=== PATIENT | female | born 1960 | race Caucasian/White ===

== ENCOUNTER → 2018-02-06 | Outpatient (CLI) | payer BC ==
--- NOTE | 2018-02-06 14:37 | US ---
EXAMINATION TYPE: US thyroid st tissue head/neck DATE OF EXAM: 02/06/2018 COMPARISON: NONE CLINICAL HISTORY: R22 Neck mass/swelling. GLAND SIZE: Right Lobe: 4.7 x 1.5 x 1.5 cm Overall Parenchyma: homogenous Left Lobe: 5.0 x 1.4 x 1.6 cm Overall Parenchyma: heterogeneous Isthmus Thickness: 0.4 cm NODULES RIGHT: # of nodules measured on right: 1 1. 1.1 X 0.6 x 1.2 cm isoechoic solid nodule at the lower pole with well-defined margins. This nod ule is wider than tall and shows intranodular vascularity. LEFT: # of nodules measured on left: 1 1. 1.6 X 1.5 x 2.1 cm isoechoic mixed nodule at the lower pole with poorly defined margins. This n odule is wider than tall and shows intranodular vascularity. ISTHMUS: # of nodules measured in the isthmus: 0 Bilateral neck scanned, no evidence of lymphadenopathy. Thyroid gland is normal in size. Left thyroid lobe is more heterogeneous in appearance and right thyr oid lobe. There is larger predominantly solid mixed nodule with solid components slightly hyperechoic and lobulation or extrathyroidal extension that is wider greater than tall with poorly defined david ns. IMPRESSION: Heterogeneous left thyroid with suspicious 2.1 cm predominantly solid poorly defined nodule. Consider further investigation with sampling.
== END | disposition home or self-care (01) ==
LOC: RADUSWWP 13:27
PROVIDERS: ATTEND Internal Medicine
DX: R93.8 Abnormal findings on diagnostic imaging of other specified body structures (principal)
CPT/HCPCS: 76536

== ENCOUNTER 2018-02-23 12:16 | Day surgery (SDC) | payer BC ==
[2018-02-23 12:48] VITALS: RESP 16; TEMP 97.8
[2018-02-23 13:41] VITALS: BP 124/81; PULSE 78
--- NOTE | 2018-02-23 13:59 | US ---
ULTRASOUND GUIDED FNA THYROID BIOPSY: CLINICAL HISTORY: Right and left thyroid nodule FINDINGS: The procedure was explained to the patient. The risks, complications, benefits and alternatives were discussed and any questions were answered. Informed consent was obtained. Patient was placed supin e on the ultrasound table and prepped and draped in the usual sterile fashion. Utilizing a 25 gauge needle, five passes were made into the questioned right and left thyroid nodule. Patient was stable throughout the procedure. Pathology is pending. All elements of maximal barrier technique were utilized. IMPRESSION: 1. Successful ultrasound guided FNA thyroid biopsy.
== END 2018-02-23 13:35 | disposition home or self-care (01) ==
LOC: RADPROMAIN 12:16
PROVIDERS: ATTEND Otolaryngology
DX: E04.1 Nontoxic single thyroid nodule (principal)
CPT/HCPCS: 10022; 36415; 76942; 88173; 88305

== ENCOUNTER → 2018-08-30 | Outpatient (CLI) | payer BC ==
--- NOTE | 2018-08-30 15:22 | US ---
EXAMINATION TYPE: US thyroid st tissue head/neck DATE OF EXAM: 08/30/2018 COMPARISON: US February 06, 2018 CLINICAL HISTORY: E04.1 THYROID NODULE. 6 month follow up thyroid nodules, history of thyroid FNA GLAND SIZE: Right Lobe: 4.6 x 1.7 x 1.7 cm Overall Parenchyma: heterogenous Left Lobe: 5.1 x 1.6 x 1.4 cm Overall Parenchyma: heterogeneous Isthmus Thickness: 0.7 cm NODULES RIGHT: # of nodules measured on right: 1 1. 1.3 X 0.7 x 1.2 cm isoechoic mixed nodule at the lower pole with well-defined margins. This nodu le is wider than tall and shows intranodular vascularity. Prior size: 1.1 x 0.6 x 1.2 cm LEFT: # of nodules measured on left: 2 1. 1.5 X 1.1 x 1.5 cm hyperechoic mixed nodule at the lower pole with well-defined margins. This no dule is wider than tall and shows intranodular vascularity. Prior size: 1.6 x 1.5 x 2.1 cm 2. 1.4 X 1.0 x 1.3 cm hypoechoic mixed nodule at the mid pole with well-defined margins. This nodule is wider than tall and shows intranodular vascularity. Prior size: no previous ISTHMUS: # of nodules measured in the isthmus: 0 Bilateral neck scanned, no evidence of lymphadenopathy. Redemonstration of heterogeneous multinodular normal size thyroid which was recently sampled. No new or changing nodules identified. IMPRESSION: Overall stable findings.
== END ==
LOC: RADUSWWP 14:18
PROVIDERS: ATTEND Otolaryngology
DX: E04.1 Nontoxic single thyroid nodule (principal)
CPT/HCPCS: 76536

== ENCOUNTER → 2019-03-20 | Outpatient (CLI) | payer BC ==
--- NOTE | 2019-03-20 16:03 | US ---
EXAMINATION TYPE: US thyroid st tissue head/neck DATE OF EXAM: 03/20/2019 COMPARISON: NONE CLINICAL HISTORY: E04.1 thyroid nodule. follow up exam GLAND SIZE: Right Lobe: 4.4 x 1.4 x 2.1 cm Overall Parenchyma: heterogenous Left Lobe: 4.0 x 1.2 x 1.7 cm Overall Parenchyma: heterogeneous Isthmus Thickness: 0.7 cm NODULES RIGHT: # of nodules measured on right: 1 1. 1.0 X 0.7 x 0.7 cm hypoechoic nodule at the mid pole with irregular margins; present with microc alcifications. This nodule is taller than wide and shows no intranodular vascularity. Prior size: 1.3 x 1.2 x 0.7 cm LEFT: # of nodules measured on left: 2 1. 1.3 X 1.8 x 1.4 cm mixed nodule at the lower pole with poorly defined margins. This nodule is w ider than tall and shows intranodular vascularity. Prior size: 1.5 x 1.5 x 1.1 cm 2. 1.0 X 0.7 x 0.8 cm mixed nodule at the upper pole with irregular margins. This nodule is taller than wide and shows no intranodular vascularity. Prior size: 1.4 x 1.0 x 1.3 cm ISTHMUS: # of nodules measured in the isthmus: 1 1. 1.2 X 1.1 x 0.7 cm isoechoic solid nodule at the rt side with well-defined margins. This nodule is wider than tall and shows no intranodular vascularity. Prior size: no previous Bilateral neck scanned, no evidence of lymphadenopathy. IMPRESSION: 1. Nodule within the isthmus is greater than 1 cm in size. 2. There are bilateral thyroid lobe nodules greater than 1 cm in size. 3. Thyroid lobe nodules were present previously and larger on the prior examination. 4. In the isthmus nodule is a new nodule comparison.
== END | disposition home or self-care (01) ==
LOC: RADUSWWP 08:29
PROVIDERS: ATTEND Otolaryngology
DX: E04.2 Nontoxic multinodular goiter (principal)
CPT/HCPCS: 76536

== ENCOUNTER → 2019-09-24 | Outpatient (CLI) | payer BC ==
--- NOTE | 2019-09-24 14:34 | US ---
EXAMINATION TYPE: US thyroid st tissue head/neck DATE OF EXAM: 09/24/2019 COMPARISON: 03/20/2019 and 08/20/2018. CLINICAL HISTORY: E04.1 THYROID NODULE. GLAND SIZE: Right Lobe: 3.7 x 1.4 x 1.5 cm Overall Parenchyma: heterogenous Left Lobe: 4.4 x 1.3 x 1.5 cm Overall Parenchyma: heterogeneous Isthmus Thickness: 0.5 cm NODULES RIGHT: # of nodules measured on right: 2 1. 0.8 X 0.7 x 0.6 cm hypoechoic nodule at the mid pole with irregular margins; present with possible colloid. This nodule is taller than wide and shows no intranodular vascularity. Prior size: 1.0 x 1.0 x 0.7 cm 2. 1.0 x 0.6 x 0.9 isoechoic nodule at the upper pole with well defined margins. This nodule is tall er than wide and shows intranodular vascularity. LEFT: # of nodules measured on left: 2 1. 1.2 x 0.5 x 0.9 cm hypoechoic mixed nodule at the lower pole with poorly defined margins. This nodule is wider than tall and shows intranodular vascularity. Prior size: 1.3 x 1.8 x 0.8 cm 2. 0.7 X 0.5 x 0.7 cm mixed nodule at the upper pole with irregular margins. This nodule is wider t martin tall and shows no intranodular vascularity. Prior size: 1.0 x 0.5 x 0.7 cm ISTHMUS: # of nodules measured in the isthmus: 1 1. 0.6 X 0.6 x 0.7 cm isoechoic solid nodule at the lt side with ill-defined margins. This nodule is taller than wide and shows intranodular vascularity. Prior size: 1.0 x 1.1 x 0.7 Bilateral neck scanned, no evidence of lymphadenopathy. IMPRESSION: No significant interval growth of the multiple bilateral thyroid nodules. Some of these n odules appear smaller than on the prior exam of 03/20/2019.
== END | disposition home or self-care (01) ==
LOC: RADUSWWP 13:43
PROVIDERS: ATTEND Otolaryngology
DX: E04.1 Nontoxic single thyroid nodule (principal)
CPT/HCPCS: 76536

== ENCOUNTER → 2020-05-22 | Outpatient (CLI) | payer BC ==
--- NOTE | 2020-05-22 10:26 | US ---
EXAMINATION TYPE: US thyroid st tissue head/neck DATE OF EXAM: 05/22/2020 COMPARISON: US 09/24/19 CLINICAL HISTORY: 59-year-old female E04.1 THYROID NODULE. TECHNIQUE: Multiple sonographic images of the thyroid gland are obtained. FINDINGS: GLAND SIZE: Right Lobe: 4.0 x 1.6 x 1.4 cm Overall Parenchyma: heterogenous Left Lobe: 4.2 x 1.3 x 1.5 cm Overall Parenchyma: heterogeneous Isthmus Thickness: 0.5 cm NODULES RIGHT: # of nodules measured on right: 2 1. 1.0 X 0.7 x 0.8 cm hypoechoic solid nodule at the upper pole with well-defined margins; . This nodule is wider than tall and shows intranodular vascularity. Prior size: 0.8 x 0.7 x 0.6 cm 2. 1.0 X 1.0 x 0.7 cm isoechoic solid nodule at the mid/lower pole with well-defined margins; . Thi s nodule is wider than tall and shows intranodular vascularity. Prior size: 1.0 x 0.6 x 0.9 cm LEFT: # of nodules measured on left: 2 1. 1.9 X 1.5x 1.3cm hypoechoic mixed nodule at the lower pole with well-defined margins; . This nod ule is wider than tall and shows intranodular vascularity. Prior size: 1.2 x 0.5 x 0.9 cm 2. 1.0 X 1.0 x 0.7 cm echogenic solid nodule at the upper pole with well-defined margins; . This no dule is wider than tall and shows intranodular vascularity. Prior size: 0.7x 0.5 x 0.7 cm ISTHMUS: # of nodules measured in the isthmus: 1 1. 1.1 X 1.0 x 0.6 cm isoechoic solid nodule at the left side pole with well-defined margins; . Th is nodule is wider than tall and shows intranodular vascularity. Prior size: 0.6 x 0.6 x 0.7 cm Bilateral neck scanned, no evidence of lymphadenopathy. IMPRESSION: 1. Multinodular thyroid gland. A 1 cm nodule in the right upper lobe has minimally increased in size (8 mm, previously). Continued follow-up recommended. 2. A solid cystic left lower pole nodule is larger at 1.9 x 1.5 cm (versus 1.2 x 0.9 cm, previously). An additional 1 cm echogenic nodule at the upper pole shows slight size increase as well (previously 7 mm). 3. The left isthmic nodule is larger at 1.1 x 1.2 cm (versus 0.7 x 0.6 cm, previously). 4. The decision to biopsy should be made on a clinical basis. Follow-up is recommended.
== END | disposition home or self-care (01) ==
LOC: RADUSWWP 09:16
PROVIDERS: ATTEND Otolaryngology
DX: E04.2 Nontoxic multinodular goiter (principal)
CPT/HCPCS: 76536

== ENCOUNTER → 2020-11-17 | Outpatient (CLI) | payer BC ==
--- NOTE | 2020-11-17 12:43 | US ---
EXAMINATION TYPE: US thyroid st tissue head/neck DATE OF EXAM: 11/17/2020 COMPARISON: NONE CLINICAL HISTORY: 60-year-old female E04.1 F/U nodules TECHNIQUE: Multiple sonographic images of the thyroid gland are obtained. FINDINGS: GLAND SIZE: Right Lobe: 3.7 x 1.6 x 1.5 cm Overall Parenchyma: heterogenous Left Lobe: 4.6 x 4.1 x 1.3 cm Overall Parenchyma: heterogeneous Isthmus Thickness: 0.6 cm NODULES RIGHT: # of nodules measured on right: 1 1. 0.9 X 0.7 x 0.9 cm solid or almost completely solid, isoechoic nodule, which is wider than tall, with smooth margins, without echogenic foci. Prior size: 1.0 x 0.7 x 1.0 cm LEFT: # of nodules measured on left: 2 1. 1.9 X 1.3 x 2.2 cm mixed cystic and solid, isoechoic nodule, which is wider than tall, with smoo th margins, without echogenic foci. Prior size: 1.9 x 1.5 x 1.3 cm 2. 0.6 X 0.5 x 0.7 cm solid or almost completely solid, isoechoic nodule, which is wider than tall, with smooth margins, without echogenic foci. Prior size: 0.7 x 0.6 x 0.7 cm [employer]iatric [employer] Nurse notes: Right nodule stable, Smaller nodule on left stable, larger nodule on left larger i n size in transverse measurement. IMPRESSION: 1. Probable multinodular goiter. 2. Dominant nodule on the left is mixed but primarily solid and has increased in size at 2.2 x 1.9 cm (versus 1.9 x 1.5 cm, previously). Continued follow-up can be performed. The decision to biopsy shou ld be made on a clinical basis.
== END | disposition home or self-care (01) ==
LOC: RADUSWWP 09:51
PROVIDERS: ATTEND Otolaryngology
DX: E04.1 Nontoxic single thyroid nodule (principal)
CPT/HCPCS: 76536

== ENCOUNTER → 2021-06-22 | Outpatient (CLI) | payer BC ==
--- NOTE | 2021-06-22 16:36 | MR ---
EXAMINATION TYPE: MR brain and iac wo/w con DATE OF EXAM: 06/22/2021 COMPARISON: 01/27/2013, CT internal auditory canals 06/22/2021 HISTORY: Acoustic neuroma extensive cholesteatoma history of surgery CONTRAST: Performed utilizing 7 mL intravenous Gadavist gadolinium contrast. TECHNIQUE: Multiplanar, multiecho imaging on a 3.0 Maye magnet is performed through the brain. Atte ntion is paid to the internal auditory canals with thin section imaging. Postcontrast imaging is per formed through the internal auditory canals. FINDINGS:Craniovertebral junction is normal. The pituitary is normal. Diffusion-weighted imaging is performed. No suspicious hyperintensity is present to suggest an acute intracranial infarct or acute ischemic area. Signal within the brain appears normal. Right external auditory canal appears opacified. Middle ear may have some increased signal. Recurrent cholesteatoma should be considered. Thin section imaging is performed through the internal auditory canals and cerebellar pontine angles. No cerebellar pontine angle masses are evident. The internal auditory canals appear normal without expansion or erosion. Seventh and eighth Cranial nerve complex appear normal. Postcontrast imaging was performed. No suspicious enhancement is evident within the internal audito ry canals or the included portions of the brain. Enhancement through the right middle ear and international exchange coordinator al auditory canal is not evident. Right mastoid air cells are fluid filled. Mild scattered air cells on the left also contains fluid. IMPRESSIONS: 1. Intermediate signal through the middle ear and external auditory canal. Recurrent cholesteatoma is suspected. Please see CT report same date. 2. Right mastoiditis with mild left mastoiditis.
--- NOTE | 2021-06-24 21:02 | CT ---
EXAMINATION TYPE: CT iac wo con DATE OF EXAM: 06/22/2021 COMPARISON: 08/10/2013 HISTORY: 61 year-old female Acoustic neuroma; extensive cholesteatoma. Pain and numbness to right ear and head x 2 years. History of brain tumor removal. CT DLP: 150 mGycm Automated exposure control for dose reduction was used. TECHNIQUE: Contiguous high-resolution axial scanning of the temporal bones performed without IV cont rast. Coronal reformatted images obtained. FINDINGS: Previous right squamous temporal craniotomy flap. Underlying resection changes extend to the anterior margin of the right petrous apex, for example, at the anterior genu of the facial nerve. Additional resection changes at the right mastoid process. There is complete opacification of the remaining mastoid air cells, the right external auditory canal , and the right middle ear cavity. The right middle ear ossicles are deformed, irregular, and probably fused. Extensive blunting of the scutum. No abnormal enlargement of the internal auditory canal. Additional partial opacification inferior left mastoid air cells. Left middle ear cavity and left ext ernal auditory canal are clear. The cochlear and vestibular aqueducts appear normal. The left facial nerve canal is normal. Reformatted images confirm above findings. IMPRESSION: 1. Postsurgical change of previous right sided squamous temporal craniotomy flap and some resection c hanges extending along the anterior margin of the right petrous apex. Additional partial resection ch anges extending into the right mastoid process. 2. Essentially complete opacification extending throughout the right external auditory canal, right m iddle ear cavity, and right mastoid air cells. This likely represents extensive cholesteatoma. The sc utum is blunted and the right middle ear ossicles are irregular, deformed, and probably fused. 3. Partial opacification inferior left mastoid air cells. Correlate for any mastoid pain here to excl ude mastoiditis.
== END | disposition home or self-care (01) ==
LOC: RADCTMAIN 10:43
PROVIDERS: ATTEND Student in an Organized Health Care Education/Training Program
DX: D33.3 Benign neoplasm of cranial nerves (principal); H70.93 Unspecified mastoiditis, bilateral; Z98.890 Other specified postprocedural states
CPT/HCPCS: 70480; 70553; A9585

== ENCOUNTER → 2022-01-04 | Outpatient (CLI) | payer BC ==
--- NOTE | 2022-01-04 13:56 | US ---
EXAMINATION TYPE: US thyroid st tissue head/neck DATE OF EXAM: 01/04/2022 COMPARISON: US CLINICAL HISTORY: E04.1 THYROID NODULE. Thyroid nodule. Hx biopsy. GLAND SIZE: Right Lobe: 4.9 x 1.3 x 1.9 cm Overall Parenchyma: heterogenous Left Lobe: 5.1 x 1.4 x 1.5 cm Overall Parenchyma: very heterogeneous Isthmus Thickness: 0.6 cm NODULES RIGHT: # of nodules measured on right: 2 1. 1.2 X 1.1 x 0.7 cm, lower, solid or almost completely solid, isoechoic nodule, which is wider th an tall, with smooth margins, without echogenic foci. TR 3 Prior size: 0.9 x 0.7 x 0.9 cm LEFT: # of nodules measured on left: 2 1. 0.8 X 0.7 x 0.7 cm, upper, solid or almost completely solid, isoechoic nodule, which is as wide as it is tall, with smooth margins, without echogenic foci. Prior size: 0.6 x 0.5 x 0.7 cm 2. 2.1 X 1.9 x 1.2 cm, lower, mixed cystic and solid, complex iso to slightly hyperechoic nodule, which is wider than tall, with smooth margins, without echogenic foci. Tr2 Prior size: 1.9 x 1.3 x 2.2 cm ISTHMUS: # of nodules measured in the isthmus: 0 Bilateral neck scanned, no evidence of lymphadenopathy. IMPRESSION: Mildly suspicious nodule right lobe thyroid consider follow up in 1-2 years 2017 ACR TI-RADS LEVEL: *Highest TI-RADS level nodule reported
== END | disposition home or self-care (01) ==
LOC: RADUSWWP 12:21
PROVIDERS: ATTEND Otolaryngology
DX: E04.1 Nontoxic single thyroid nodule (principal)
CPT/HCPCS: 76536

== ENCOUNTER → 2023-01-26 | Outpatient (CLI) | payer BC ==
[2023-01-26 18:17] LABS: Basophils # (A) 0.03 X 10*3/uL (0.00-0.10); Basophils % (A) 0.4 %; Eosinophils # (A) 0.17 X 10*3/uL (0.04-0.35); Eosinophils % (A) 2.4 %; HCT 41.1 % (37.2-46.3); HGB 13.4 g/dL (12.0-15.0); Immature Grans, Automated 0.3 %; Lymphocytes # (A) 1.91 X 10*3/uL (0.90-5.00); Lymphocytes % (A) 26.7 %; MCH 30.6 pg (27.0-32.0); MCHC 32.6 g/dL (32.0-37.0); MCV 93.8 fL (80.0-97.0); Mean Platelet Volume 12.7 fL (9.5-12.2); Monocytes # (A) 0.44 X 10*3/uL (0.20-1.00); Monocytes % (A) 6.2 %; NRBC Per 100 WBC 0 /100 WBCS (0.0-0.0); Neutrophils # (A) 4.58 X 10*3/uL (1.80-7.70); Platelet Count 261 X 10*3/uL (140-440); RBC 4.38 X 10*6/uL (4.10-5.20); RDW 12.7 % (11.5-14.5); WBC 7.15 X 10*3/uL (4.50-10.00)
[2023-01-26 18:29] LABS: % Iron Saturation 19.97 (12.00-45.00); Ferritin 45.2 ng/mL (10.0-291.0); T4, Free (Free Thyroxine) 1.38 ng/dL (0.800-1.800); Testosterone 5.43 ng/mL (7.00-45.62)
== END | disposition home or self-care (01) ==
LOC: LABWHC1 12:26
PROVIDERS: ATTEND Physician Assistant
DX: L65.9 Nonscarring hair loss, unspecified (principal)
CPT/HCPCS: 36415; 82306; 82626; 82728; 83540; 83550; 84402; 84403; 84439; 84443; 84630; 85025; 86038; 86039

== ENCOUNTER → 2023-01-26 | Outpatient (CLI) | payer BC ==
--- NOTE | 2023-01-26 13:32 | US ---
EXAMINATION TYPE: US thyroid st tissue head/neck DATE OF EXAM: 01/26/2023 COMPARISON: 01/04/2022 CLINICAL HISTORY: 62-year-old female E04.1 NONTOXIC SINGLE THYROID NODULE. Follow-up thyroid nodules TECHNIQUE: Multiple sonographic images of the thyroid gland are obtained. FINDINGS: GLAND SIZE: Right Lobe: 4.7 x 1.6 x 1.6 cm Overall Parenchyma: heterogenous Left Lobe: 5.0 x 1.6 x 1.6 cm Overall Parenchyma: heterogeneous Isthmus Thickness: 0.6 cm NODULES RIGHT: # of nodules measured on right: 1 1. 1.1 X 0.6 x 1.1 cm, lower , solid or almost completely solid, isoechoic TR 3 nodule, which is wi nigel than tall, with smooth margins, without echogenic foci. Prior size: 1.2 x 0.7 x 1.1 cm LEFT: # of nodules measured on left: 2 1. 0.8 X 0.5 x 0.6 cm, upper , solid or almost completely solid, isoechoic TR3 nodule, which is wid er than tall, with ill-defined margins, without echogenic foci. Prior size: 0.8 x 0.7 x 0.7 cm 2. 2.1 X 1.5 x 2.0 cm, lower , mixed cystic and solid, predominantly solid isoechoic TR 3 nodule, which is wider than tall, with smooth margins, without echogenic foci. Prior size: 2.1 x 1.3 x 2.2 cm ISTHMUS: # of nodules measured in the isthmus: 0 Bilateral neck scanned, normal appearing lymph nodes bilaterally IMPRESSION: Correlate for multinodular goiter. A few TR3 nodules are redemonstrated, measuring up to 1.1 cm on th e right and 2.1 cm on the left, overall stable. These can continue to be followed. FNA if they reach 2.5 cm.
== END | disposition home or self-care (01) ==
LOC: RADUSWWP 12:23
PROVIDERS: ATTEND Otolaryngology
DX: E04.2 Nontoxic multinodular goiter (principal)
CPT/HCPCS: 76536

== ENCOUNTER → 2024-01-30 | Outpatient (CLI) | payer BC ==
--- NOTE | 2024-01-30 13:51 | US ---
EXAMINATION TYPE: US thyroid st tissue head/neck DATE OF EXAM: 01/30/2024 COMPARISON: US 2022 CLINICAL INDICATION: Female, 63 years old with history of E04.2 MULTINODULAR GOITER; GLAND SIZE: Right Lobe: 4.1 x 1.6 x 1.5 cm Overall Parenchyma: homogeneous Left Lobe: 5.0 x 1.5 x 1.5 cm Overall Parenchyma: homogeneous Isthmus Thickness: 0.6 cm NODULES RIGHT: # of nodules measured on right: 1 1. 1.1 X 0.7 x 1.0 cm, lower mid, solid or almost completely solid, isoechoic nodule, which is wide r than tall, with smooth margins, without echogenic foci. Prior size: 1.1 x 0.6 x 1.1 cm. TR 3, but requires no follow-up due too small size. LEFT: # of nodules measured on left: 2 1. 1.6 X 1.4 x 2.0 cm, lower mid, solid or almost completely solid, isoechoic nodule, which is wide r than tall, with ill-defined margins, without echogenic foci. Prior size: 2.1 x 1.5 x 2.0 cm. TR 3, but should undergo ultrasound imaging follow-up. 2. 0.9 X 0.7 x 0.6 cm, upper lateral, solid or almost completely solid, isoechoic nodule, which is wider than tall, with ill-defined margins, without echogenic foci. Prior size: 0.8 x 0.5 x 0.6 cm. TR 3, but too small to require follow-up. ISTHMUS: # of nodules measured in the isthmus: 0 Bilateral neck scanned, no evidence of lymphadenopathy. IMPRESSION: 3 nodules are reidentified and essentially unchanged. All 3 nodules are TIRADS score TR 3 2017 ACR TI-RADS LEVEL: TR 3 *Highest TI-RADS level nodule reported
== END | disposition home or self-care (01) ==
LOC: RADUSWWP 13:00
PROVIDERS: ATTEND Otolaryngology
DX: E04.2 Nontoxic multinodular goiter (principal)
CPT/HCPCS: 76536

== ENCOUNTER → 2024-09-04 | Outpatient (CLI) | payer MEDICARE ==
--- NOTE | 2024-09-04 17:55 | US ---
EXAMINATION TYPE: US thyroid st tissue head/neck DATE OF EXAM: 09/04/2024 COMPARISON: 01/30/24 CLINICAL INDICATION: Female, 64 years old with history of E04.1 THYROID NODULE; thyroid nodule TECHNIQUE: Grayscale and color Doppler imaging of the thyroid gland. FINDINGS: GLAND SIZE: Right Lobe: 4.6 x 1.7 x 1.5 cm Overall Parenchyma: homogeneous Left Lobe: 4.9 x 1.6 x 1.7 cm Overall Parenchyma: homogeneous Isthmus Thickness: 0.49 cm NODULES RIGHT: # of nodules measured on right: 1 1. 1.1 X 1.2 x 0.7 cm, lower mid, Prior size: 1.1 x 1.0 x 0.7 cm TIRADS Score: 3 TIRADS Category 3: Composition: Solid or almost completely solid (2 points). Echogenicity: Hyperechoic or isoechoic (1 point). Shape: Wider than tall (0 points). Margin: Smooth (0 points). Echogenic foci: None or large comet-tail artifacts (0 points) Recommendation: If >2.5cm: FNA; If >1.5cm: Follow up at 1,3,5 years LEFT: # of nodules measured on left: 2 1. 1.8 X 1.9 x 1.7 cm, lower mid, Prior size: 2.0 x 1.6 x 1.5 cm TIRADS Score: 3 TIRADS Category 3: Composition: Solid or almost completely solid (2 points). Echogenicity: Hyperechoic or isoechoic (1 point). Shape: Wider than tall (0 points). Margin: Smooth (0 points). Echogenic foci: None or large comet-tail artifacts (0 points) Recommendation: If >2.5cm: FNA; If >1.5cm: Follow up at 1,3,5 years 2. 0.7 X 0.6 x 0.5 cm, upper mid, Prior size: 0.9 x 0.7 x 0.6 cm TIRADS Score: 3 TIRADS Category 3: Composition: Solid or almost completely solid (2 points). Echogenicity: Hyperechoic or isoechoic (1 point). Shape: Wider than tall (0 points). Margin: Smooth (0 points). Echogenic foci: None or large comet-tail artifacts (0 points) Recommendation: If >2.5cm: FNA; If >1.5cm: Follow up at 1,3,5 years ISTHMUS: # of nodules measured in the isthmus: 0 Bilateral neck scanned, no evidence of lymphadenopathy. IMPRESSION: Thyroid nodules that meet criteria for follow-up. [facility], , 09/04/2024 5:53 PM
== END | disposition home or self-care (01) ==
LOC: RADUSWWP 10:22
PROVIDERS: ATTEND Family Medicine
DX: E04.2 Nontoxic multinodular goiter (principal)
CPT/HCPCS: 76536